=== PATIENT | male | born 1960 | race Two or more races ===

== ENCOUNTER 2021-06-15 22:49 | Emergency (ER) | payer SELFPAY ==
[~2021-06-15] VITALS: Ht 175.3 cm; Wt 98.4 kg
[2021-06-15] MEDS ORDERED: PRED20TA5 PO (23:23)
[2021-06-15] MEDS ORDERED: AMOX-999 PO (23:23)
[2021-06-15 23:32] VITALS: BP 142/94
[2021-06-15 23:50] VITALS: BP 142/94
--- NOTE | 2021-06-15 23:50 | NUR ---
Patient discharged with v/s stable. Written and verbal after care instructions given and explained. Patient alert, oriented and verbalized understanding of instructions. Ambulatory with steady gait. All questions addressed prior to discharge. ID band removed. Patient advised to follow up with PMD. Rx of DELTASONE AND AUGMENTIN 500-125 given. Patient educated on indication of medication including possible reaction and side effects. Opportunity to ask questions provided and answered.
== END 2021-06-15 23:49 | disposition home or self-care (01) ==
LOC: MED 22:49
DX: J32.9 Chronic sinusitis, unspecified (principal); Z79.899 Other long term (current) drug therapy
CPT/HCPCS: 99283

== ENCOUNTER 2023-09-19 18:50 | Emergency (ER) | payer SELFPAY ==
[~2023-09-19] VITALS: Ht 175.3 cm; Wt 102.1 kg
[~2023-09-19 18:50] MED LIST: AMOX-999 PO; PRED20TA5 PO
[2023-09-19 19:20] VITALS: BP 117/85; PULSE 85; RESP 18; TEMP 98; O2SAT 98
[2023-09-19] MEDS ORDERED: AMOX-1230 PO (20:22)
[2023-09-19] MEDS ORDERED: [UNRECOGNIZED DRUG - CODE] PO (20:22)
[2023-09-19] MEDS ORDERED: FLONAS NS (20:22)
== END 2023-09-19 20:26 | disposition home or self-care (01) ==
LOC: MED 18:50
DX: J32.9 Chronic sinusitis, unspecified (principal); Z79.899 Other long term (current) drug therapy
CPT/HCPCS: 71045; 99283

== ENCOUNTER 2024-02-18 08:34 | Emergency (ER) | payer OTHER ==
[~2024-02-18] VITALS: Ht 175.3 cm; Wt 99.3 kg
[~2024-02-18 08:34] MED LIST changes: +AMOX-1230 PO; +FLONAS NS; +[UNRECOGNIZED DRUG - CODE] PO
[2024-02-18 08:39] VITALS: BP 158/113; PULSE 93; RESP 16; TEMP 98.6; O2SAT 96
[2024-02-18] MEDS: KETOROLAC 60 MG/2 ML VIAL IM ONE (10:55)
[2024-02-18] MEDS ORDERED: CHLO-757 PO (11:16)
[2024-02-18] MEDS ORDERED: LISI-953 PO (11:16)
[2024-02-18] MEDS ORDERED: ACET-8905 PO (11:16)
[2024-02-18] MEDS ORDERED: IBUP-2213 PO (11:16)
[2024-02-18 11:30] VITALS: BP 125/76; PULSE 69; RESP 23; TEMP 98.6; O2SAT 96
== END 2024-02-18 11:30 | disposition home or self-care (01) ==
LOC: MED 08:34
DX: S20.212A Contusion of left front wall of thorax, initial encounter (principal); S80.12XA Contusion of left lower leg, initial encounter; F10.239 Alcohol dependence with withdrawal, unspecified; I10 Essential (primary) hypertension; Z79.899 Other long term (current) drug therapy; Z98.890 Other specified postprocedural states; Y90.9 Presence of alcohol in blood, level not specified; V89.2XXA Person injured in unspecified motor-vehicle accident, traffic, initial encounter; Y93.89 Activity, other specified; Y92.89 Other specified places as the place of occurrence of the external cause; Y99.8 Other external cause status
CPT/HCPCS: 96372; 99285; J1885